=== PATIENT | female | born 1980 ===

== ENCOUNTER → 2018-10-01 | Outpatient (CLI) | payer OTHER ==
[~2018-10-01] MED LIST: ARMO50TA4 PO; CETI10CA8 PO; FLU60VIA41 IM; MULT1TAB64 PO; OMEG-23 PO; OMEP-125 PO; TRAZ50TA34 PO
[2018-10-01 14:34] LABS: PLATELET COUNT, AUTOMATED 285 K/uL (150-450)
[2018-10-01 14:59] LABS: LDL CHOLESTEROL 107 mg/dl
== END ==
LOC: LAB 14:18
PROVIDERS: ATTEND Emergency Medicine
DX: F41.8 Other specified anxiety disorders (principal)
CPT/HCPCS: 36415; 82040; 82247; 82310; 82374; 82435; 82465; 82565; 82607; 82947; 83718; 84075; 84132; 84155; 84295; 84443; 84450; 84460; 84478; 84520; 85025